=== PATIENT | male | born 1970 | race Caucasian/White ===

== ENCOUNTER 2024-10-04 06:26 | Day surgery (SDC) | payer OTHER, SELFPAY ==
[2024-10-04 07:16] LABS: Glucose - Point of Care 96 mg/dl (70-99)
== END 2024-10-04 08:50 | disposition home or self-care (01) ==
LOC: GI 06:26
PROVIDERS: ATTENDING PHYSICIAN Internal Medicine Gastroenterology
DX: Z12.11 Encounter for screening for malignant neoplasm of colon (principal); K57.30 Diverticulosis of large intestine without perforation or abscess without bleeding; D12.3 Benign neoplasm of transverse colon; D12.2 Benign neoplasm of ascending colon; D12.5 Benign neoplasm of sigmoid colon; Z80.0 Family history of malignant neoplasm of digestive organs; Z86.0101 Personal history of adenomatous and serrated colon polyps
CPT/HCPCS: 45385; 45380; 88305; 82962

== ENCOUNTER 2024-10-22 21:01 | Emergency (ER) | payer OTHER, SELFPAY ==
[2024-10-22 21:13] VITALS: BP 132/82
--- NOTE | 2024-10-23 00:26 | ED.MUSCINJ ---
HPI-Injury
General
Chief Complaint: Fall
Source: patient and spouse
Exam Limitations: none
Time Seen by Provider: 10/23/24 00:16
Nursing documentation reviewed up to this point in time: agreed with
History of Present Illness-Injury
Is this injury a work related problem?: No
Initial Injury comments:
This is a 53-year-old gentleman who has history of mne-[id number] diabetes, history of A-fib chronically maintained on Xarelto. He states tonight approximately 1 hour prior to arrival he inadvertently slipped down 1 step, falling forward and
onto his left side injuring his left anterior thigh. He denies head injury, no loss of consciousness, was able to get up unassisted and has been ambulatory since fall but continues with some moderate pain left anterior mid to distal thigh. He
denies knee pain, no hip pain, no back pain, no pain to his lower leg nor foot, no weakness or numbness.
He denies dizziness nor lightheadedness, no headache, no neck pain.
He has not taken anything for discomfort.
Past History
Past History
ED Past Medical History: Arrthythmia (PAF), GERD, NIDDM (peripheral neuropathy) and Other (Sleep apnea w CPAP)
ED Past Surgical History: Cardiac (ablation for PAF)
Social History
Tobacco: Non-smoker
Personal:
Living: with family
Employment: Employed
Family History
Family History: Other (Noncontributory)
Phy Exam
Physical Exam
Physical Exam:
GENERAL: 53-year-old gentleman appears his stated age, awake and alert, pleasant, appears in no acute distress. is accompanying.
EYE: The head is normocephalic, atraumatic. Pupils are equal and round.
NECK: Supple, nontender
ENT: oral mucosa is moist. No rhinorrhea.
CARDIAC: Regular rate and rhythm. no murmur.
LUNGS: Clear breath sounds bilaterally, no acute respiratory distress, no wheezes/rales/rhonchi
ABDOMEN: Soft, nondistended, without focal tenderness
NEUROLOGICAL: Alert and oriented x3, no focal neuro deficits. Gait is steady.
SKIN: Warm and dry, normal color, skin intact. No rash.
MUSCULOSKELETAL: No C/C/E. peripheral pulses are full and equal b/l. Mild to moderate tenderness left anterior mid to distal thigh with minimal palpable soft tissue swelling but no palpable hematoma. No tenderness about the knee nor hip. Full hip
and knee range of motion without difficulty nor pain. No gross deformities nor malalignment. Strength and sensation intact.
PSYCH: Normal and appropriate interaction.
Injury Course
Orders/Labs/Results
Orders:
Orders
10/22/24 21:19
Femur, Left 2 View [CR Femur - Left Min 2 Vw] Urgent
Comment:
Reason For Exam: injury
10/23/24 00:25
Acetaminophen [Tylenol] 1,000 mg PO NOW STA
MDM/Problems Addressed
Differential Diagnosis Includes:
History and exam was consistent with left quadricep muscle strain. There is nothing on exam to suggest quadricep tendon rupture, patella is not high riding. There is mild to moderate tenderness mid quadricep but no significant soft tissue
swelling, no palpable hematoma and nothing to suggest compartment syndrome.
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 No evidence of fracture.
Patient is able to stand, bear weight and ambulate without difficulty.
Recommend supportive measures. As he is chronically maintained on Xarelto, will avoid NSAIDs and recommend acetaminophen for as needed pain.
Recommend continuing ice, elevation over the next 1 to 2 days, transition to heat thereafter and can utilize [id number] lidocaine patches as needed.
Follow-up with PCP for recheck.
Return precautions discussed.
Chronic conditions affecting care: DM (History of diabetes; could consider short course of oral steroids but no significant swelling on exam and with history of diabetes will avoid steroids) and Arrhythmia (History of atrial fibrillation chronically
maintained on Xarelto, will avoid NSAIDs)
*Radiology
Radiology exam reviewed: radiology read reviewed
*Critical Care Note
Total Time (30-74mins, 75-104mins- exclusive of procedures): Not Applicable
ED Attending Note
-
Portions of this chart may have been created with voice recognition software.� Occasional wrong word or��sound alike� substitutions may have occurred due to the inherent limitations of voice recognition software.
Discharge Plan
Departure
Patient Disposition: Home (Routine Discharge)
Date of Disposition: 10/23/24
Time of Disposition: 00:26
Patient with high blood pressure during this ER visit?: No
Condition: Good
Discharge Problem:
Injury of left quadriceps femoris muscle
Instructions: Lower Extremity Muscle Strain (DC)
Prescriptions:
No Action
atorvastatin 10 mg Tablet
10 mg PO QPM
metoprolol succinate 50 mg Tablet Extended Release 24 Hr
50 mg PO DAILY
glimepiride 2 mg Tablet
2 mg PO DAILY
omeprazole 20 mg Capsule,Delayed Release(Dr/Ec)
20 mg PO QPM
lisinopril 2.5 mg Tablet
2.5 mg PO QPM
metformin 500 mg Tablet Extended Release 24hr
500 mg PO BID
cholecalciferol (vitamin D3) [Vitamin D3] 50 mcg (2,000 unit) Capsule
100 mcg PO DAILY
Ozempic 1 mg/dose (2 mg/1.5 mL) Pen Injector
0.5 mg SC TH
ibuprofen 800 mg Tablet
800 mg PO Q8H PRN (Reason: mild pain)
Xarelto 20 mg Tablet
20 mg PO QPM
multivitamin Tablet
1 tab PO QPM
Oxycodone
0 mg PO DAILYPRN PRN (Reason: severe pain)
Rx Instructions:
05/21/23 patient explained that he has oxycodone from 2011 and we tried to pdmp medication but system does not go back that far
Referrals:
Lottie Kwok DO [Family Provider] - Call in 1-3 days for appt
Interventions
Interventions:
*Risk Screen - Suicide Last Done: 10/22/24 21:13
*General Assessment Last Done: 10/22/24 21:13
*Neglect/Abuse Screening Last Done: 10/22/24 21:13
ED- Fall Risk Assessment Last Done: 10/22/24 21:13
*ED COVID-19 Vaccine History Last Done: 10/22/24 21:13
*Nursing Disposition Last Done: 10/23/24 00:47
ED-Musculoskeletal Assessment Last Done: 10/23/24 00:20
ED- Neurological Assessment Last Done: 10/23/24 00:20
ED-Skin Assessment Last Done: 10/23/24 00:20
Discharge Date and Time
Discharge Date/Time: 10/23/24 00:48
Print Language: IRISH
[2024-10-23] MEDS: TYLENOL 1000 MG PO (00:45)
== END 2024-10-23 00:48 | disposition home or self-care (01) ==
LOC: EMR 21:01
PROVIDERS: EMERGENCY PHYSICIAN Emergency Medicine; FAMILY PHYSICIAN Family Medicine
DX: S76.102A Unspecified injury of left quadriceps muscle, fascia and tendon, initial encounter (principal); X58.XXXA Exposure to other specified factors, initial encounter; I48.0 Paroxysmal atrial fibrillation; K21.9 Gastro-esophageal reflux disease without esophagitis; E11.42 Type 2 diabetes mellitus with diabetic polyneuropathy; G47.30 Sleep apnea, unspecified; Z79.01 Long term (current) use of anticoagulants; Z79.84 Long term (current) use of oral hypoglycemic drugs
CPT/HCPCS: 99283; 73552

== ENCOUNTER → 2025-04-14 07:16 | Outpatient (REF) | payer OTHER, SELFPAY | LOC: HWRAD 07:16 | PROVIDERS: ATTENDING PHYSICIAN Urology; FAMILY PHYSICIAN Family Medicine | DX: N20.0 Calculus of kidney (principal) | CPT/HCPCS: 76775 ==